=== PATIENT | female | born 1945 | race Caucasian/White ===

== ENCOUNTER → 2024-07-20 | Outpatient (CLI) | payer MEDICARE, SELFPAY ==
[2024-07-20 11:37] LABS: Albumin, Serum 4.2 gm/dL (3.4-4.8); Anion Gap 10 (7-16); BUN/Creatinine Ratio 20 Ratio (12-20); Blood Urea Nitrogen 20 mg/dL (9-23); Calcium 9.6 mg/dL (8.3-10.6); Calcium (Corrected) 9.6 mg/dL (8.5-10.1); Carbon Dioxide 24.5 mMol/L (20.0-31.0); Chloride 107 mMol/L (98-107); Glucose 88 mg/dL (74-106); Osmolality,Calculated 282 (275-295); Phosphorous 3.3 mg/dL (2.4-5.1); Potassium 4.4 mMol/L (3.4-5.1); Sodium 141 mMol/L (136-145); eGFR 58 See Note
== END | disposition home or self-care (01) ==
LOC: COPL 10:26
PROVIDERS: PCP Internal Medicine; Referring Provider Internal Medicine; Visit Provider Internal Medicine
DX: Z00.00 Encounter for general adult medical examination without abnormal findings (principal)
CPT/HCPCS: 36415; 80069

== ENCOUNTER → 2024-08-03 | Outpatient (CLI) | payer MEDICARE, SELFPAY ==
--- NOTE | 2024-08-03 10:30 | XR_ITS ---
Examination: CT abdomen with intravenous contrast CT pelvis with intravenous contrast 2-D coronal reconstructions 2-D sagittal reconstructions Date and time of exam:August 03, 2024 1123 hours INDICATIONS: Right lower abdominal pain left lower abdominal pain beginning 2 months ago. CTDI: vol (mGy) 6.22 DLP: (mGycm) 283 Technique: Multiple axial sections of the abdomen and pelvis have been obtained. 64 slice high-resolution scanner used. 3 mm axial sections have been obtained, post intravenous injection 60 cc Isovue-370 2-D sagittal, coronal reconstructions obtained. Low dose protocols were performed. One or more of the following dose reduction techniques were used; automated exposure control, adjustment of the mA and/or KV according to patient size, use of iterative reconstruction technique. Findings: Minor atelectasis in the right lower lobe Fatty infiltration throughout the liver Gallstones Spleen is not enlarged No pancreatic mass Aorta normal size No renal or ureteral calculi, no hydronephrosis No bowel obstruction Absent appendix Surgical clips right lower abdomen Anteverted uterus with abnormal thickened endometrium 25 mm Urinary bladder intact Prominent osteopenia IMPRESSION: Anteverted uterus with abnormal thickened endometrium, recommend transvaginal transabdominal pelvic sonography follow-up
== END | disposition home or self-care (01) ==
PROVIDERS: PCP Internal Medicine; Referring Provider Internal Medicine; Visit Provider Internal Medicine
DX: N85.4 Malposition of uterus (principal); R93.89 Abnormal findings on diagnostic imaging of other specified body structures
CPT/HCPCS: 74177; A4649; Q9967

== ENCOUNTER → 2024-08-20 | Outpatient (CLI) | payer MEDICARE, SELFPAY ==
--- NOTE | 2024-08-20 13:30 | XR_ITS ---
Examination: Transvaginal ultrasound of the pelvis, complete Technique: Transvaginal sonographic images pelvis performed using burton scale imaging Exam date and time: August 20, 2024 1355 hours INDICATIONS: Thickened endometrial stripe on CT pelvis August 03, 2024, postmenopausal female FINDINGS: Uterus 7.3 x 3.3 x 4.7 cm anteverted Endometrial stripe abnormally thickened 2.4 cm Ovaries obscured by bowel gas IMPRESSION: Abnormal thickened endometrial stripe, differential would include endometrial hyperplasia, malignant neoplasm of the endometrium Recommend MRI pelvis follow-up, pre and postcontrast.
== END | disposition home or self-care (01) ==
LOC: CDIM 12:57
PROVIDERS: PCP Internal Medicine; Referring Provider Internal Medicine; Visit Provider Internal Medicine
DX: R93.89 Abnormal findings on diagnostic imaging of other specified body structures (principal)
CPT/HCPCS: 76830

== ENCOUNTER → 2024-09-07 | Outpatient (CLI) | payer MEDICARE, SELFPAY ==
[2024-09-07 11:54] LABS: Albumin, Serum 4.3 gm/dL (3.4-4.8); Anion Gap 7 (7-16); BUN/Creatinine Ratio 14 Ratio (12-20); Blood Urea Nitrogen 14 mg/dL (9-23); Calcium 9.9 mg/dL (8.3-10.6); Calcium (Corrected) 9.9 mg/dL (8.5-10.1); Chloride 111 mMol/L (98-107); Glucose 91 mg/dL (74-106); Osmolality,Calculated 289 (275-295); Phosphorous 3.9 mg/dL (2.4-5.1); Potassium 4.8 mMol/L (3.4-5.1); Sodium 145 mMol/L (136-145); eGFR 58 See Note
== END | disposition home or self-care (01) ==
LOC: COPL 10:55
PROVIDERS: PCP Internal Medicine; Referring Provider Internal Medicine; Visit Provider Internal Medicine
DX: Z01.812 Encounter for preprocedural laboratory examination (principal)
CPT/HCPCS: 36415; 80069

== ENCOUNTER 2024-09-20 07:51 | Emergency (ER) | payer MEDICARE, SELFPAY ==
[2024-09-20 07:59] VITALS: BP 171/96; PULSE 94; RESP 18; TEMP 36.6; O2SAT 97; BMI 22.0
--- NOTE | 2024-09-20 08:04 | PD.EDRME ---
Rapid Medical Screening Exam [facility] Arrival date/time: 09/20/24 07:51 79-year-old female with no known medical history presents to the emergency room with a chief complaint of vaginal bleeding x 2 days. Patient denies any pelvic pain and states there is significant amount of blood, and blood clots whenever she wipes. I have greeted and performed a focused initial assessment of this patient. A comprehensive ED assessment and evaluation of the patient, analysis of all test results, and completion of the medical decision making process will be conducted by additional ED providers. Chief Complaint: Vaginal Bleeding Vital signs: Vital Signs Temperature 97.8 F 09/20/24 07:59 Pulse Rate 94 09/20/24 07:59 Respiratory Rate 18 09/20/24 07:59 Blood Pressure 171/96 H 09/20/24 07:59 Pulse Oximetry (%) 97 09/20/24 07:59 Oxygen Delivery Method Room Air 09/20/24 07:59 Vital signs reviewed by provider: Yes
--- NOTE | 2024-09-20 08:05 | XR_ITS ---
Examination: Pelvic ultrasound, transabdominal, complete Technique: Transabdominal ultrasound of the pelvis performed using grayscale imaging Date and time of exam: September 22, 2024 0827 hrs. Indications: Vaginal bleeding postmenopausal beginning 5 days ago Findings: Uterus 8.4 x 4.4 x 5.7 cm Abnormally thickened endometrium 14 mm Right ovary 2.2 cm arterial flow Left ovary 2.0 cm arterial flow Impression: Abnormally thickened endometrium in this postmenopausal individual, differential would include endometrial hyperplasia, malignant neoplasm of the endometrium Recommend elective MRI pelvis follow-up pre and postcontrast
[2024-09-20 08:21] LABS: Basophils % (Auto) 0 % (0-2.5); Eosinophils # (Auto) 0.1 Thou/mm3 (0.0-0.5); Eosinophils % (Auto) 1 % (0-10); Hematocrit 40.1 % (36.0-46.0); Hemoglobin 12.9 g/dL (12.0-16.0); Immature Granulocytes % (Auto) 1 % (0-0); Lymphocytes # (Auto) 1.1 Thou/mm3 (1.0-4.8); Lymphocytes % (Auto) 12 % (10-50); Mean Corpuscular HGB Conc 32.2 g/dl (31.0-37.0); Mean Corpuscular Hemoglobin 26.9 pg (25.0-35.0); Mean Corpuscular Volume 84 fL (80-100); Monocytes # (Auto) 0.9 Thou/mm3 (0.0-0.8); Monocytes % (Auto) 10 % (0-12); Neutrophils # (Auto) 6.8 Thou/mm3 (1.8-7.7); Neutrophils % (Auto) 76 % (37-80); Nucleated Red Blood Cell % 0 /100 WBC (0); Platelet Count 325 Thou/mm3 (140-440); RDW Standard Deviation 41.9 fL (36.4-46.3)
[2024-09-20 08:40] LABS: Prothrombin Time 11.1 Seconds (9.0-12.2)
[2024-09-20 08:50] LABS: Alanine Aminotransferase 13 U/L (10-49); Albumin, Serum 4.4 gm/dL (3.4-4.8); Albumin/Globulin Ratio 1.5 (1.2-2.2); Alkaline Phosphatase 64 U/L (46-116); Anion Gap 9 (7-16); Aspartate Amino Transferase 20 U/L (0-34); BUN/Creatinine Ratio 12 Ratio (12-20); Bilirubin,Total 0.4 mg/dL (0.3-1.2); Blood Urea Nitrogen 12 mg/dL (9-23); Calcium 9.4 mg/dL (8.3-10.6); Calcium (Corrected) 9.4 mg/dL (8.5-10.1); Carbon Dioxide 27.4 mMol/L (20.0-31.0); Chloride 105 mMol/L (98-107); Estimated Creatinine Clearance 38.4 mL/min (>60); Globulin 2.9 gm/dL (2.3-3.5); Glucose 96 mg/dL (74-106); Osmolality,Calculated 280 (275-295); Potassium 3.6 mMol/L (3.4-5.1); Sodium 141 mMol/L (136-145); Total Protein 7.3 gm/dL (5.7-8.2); eGFR 58 See Note
[2024-09-20 09:23] LABS: Collection Type, Urine Clean Catch
[2024-09-20 09:36] LABS: Bilirubin,Urine Negative (Negative); Blood,Urine 2+ (Negative); Clarity,Urine Clear (Clear/Hazy); Color,Urine Colorless (Lt Yel-Yel); Culture Indicated,Urine Not Indicated; Glucose, Urine Negative (Negative); Ketones,Urine Negative (Negative); Leukocyte Esterase,Urine Negative (Negative); Nitrite,Urine Negative (Negative); PH,Urine 6.5 (5.0-7.0); Protein,Urine Negative (Neg - Trace); RBC,Urine < 1 /hpf (0-3); Specific Gravity,Urine 1.004 (1.001-1.035); Squamous Epithelial Cell,Urine < 1 /hpf (0-5); Urobilinogen,Urine Negative mg/dL (0.0-1.0); WBC,Urine 1 /hpf (0-5)
[2024-09-20 09:39] VITALS: BP 168/84; PULSE 80; RESP 17; TEMP 36.8; O2SAT 100
--- NOTE | 2024-09-20 09:58 | PD.EDVAGBL ---
ED OB Contraction Preg RMI/HPI General Chief complaint: Vaginal Bleeding Stated complaint: BLEEDING FROM MY VAGINIA X SATURDAY Arrival date/time: 09/20/24 07:51 RME / HPI RME / HPI Narrative: 09/20/24 07:51 79-year-old female with no known medical history presents to the emergency room with a chief complaint of vaginal bleeding x 2 days. Patient denies any pelvic pain and states there is significant amount of blood, and blood clots whenever she wipes. I have greeted and performed a focused initial assessment of this patient. A comprehensive ED assessment and evaluation of the patient, analysis of all test results, and completion of the medical decision making process will be conducted by additional ED providers. DR. RIDER MAIN ED EVALUATION: 79 year old female with past medical history significant for GERD presents to the Emergency Department accompanied by her son with complaint of vaginal bleeding since Saturday evening, 6 days ago. Symptoms are moderate, patient reports some clots and maybe 1 cup of blood total. She states she had similar symptoms 5 years ago, saw Dr. Nguyễn. She states that she had CT and US for abdominal pain; she has an MRI scheduled and no official diagnosis yet. Patient also reports that she was recently sick with flu symptoms about 2 weeks ago but doing better and finished her Zpak yesterday. Otherwise reports normal gait. No dysuria, no shortness of breath, no significant weight loss/ gain, or other symptoms at this time. PCP: Dr. 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: Delma Related Data Home Medications ?Medication ?Instructions ?Recorded ?Confirmed zolpidem 10 mg tablet 10 mg PO HS 05/20/18 01/05/21 loratadine 10 mg tablet (Claritin) 10 mg PO QDAY PRN Allergy Symptoms 01/05/21 01/05/21 Allergies Allergy/AdvReac Type Severity Reaction Status Date / Time levofloxacin Allergy Intermediate TENODN PAIN Verified 09/20/24 07:52 Penicillins Allergy Intermediate Hives Verified 09/20/24 07:52 prednisone Allergy Intermediate Chest Pain Verified 09/20/24 07:52 Review of Systems Review of Systems Systems Reviewed: All systems reviewed, normal except as documented Narrative Review of Systems: GEN: No fever, no chills, no weight loss EYES: No discharge, no visual changes, no pain HEENT: No ear pain, no congestion, no sore throat PULM: No shortness of breath, no cough, no congestion CV: No chest pain, no dyspnea on exertion, no palpitations GI: No nausea, no vomiting, no diarrhea, no pain, no constipation : No frequency, no urgency and no dysuria + vaginal bleeding (see HPI) MUSC/SKEL: No joint pain, no back pain SKIN: No rash PSYCH: No hallucinations, no depression HEME/LYMPH: No easy bleeding or bruising tendencies NEURO: No weakness, no headache Past Medical History Past Medical History GASTROINTESTINAL: Positive Gastrointestinal Disorders and Gastroesophageal Reflux Disease MUSCULOSKELETAL: Positive Musculoskeletal Disorders and Degenerative Joint Disease (Rt Knee) ENT: Positive Cataracts (BILATERAL EYES) Family History FAMILY HISTORY: Positive Family Cardiac Disorders (HTN-brother) and Family Cancer (grandparent) Social History SMOKING STATUS: Never smoker SUBSTANCE USE: does not use ALCOHOL: Never ED Exam Narrative Physical exam: Physical Exam:? General:?? ? The vital signs were reviewed. ? ? The patient is non-toxic, in no apparent distress and appears healthy with a patent airway, no respiratory distress and has no apparent circulatory problems. Head & Scalp:?? ? Normocephalic, atraumatic. Face:?? ? Appears normal and is without lesions, deformity. Ears:??? Left external pinna appears normal. ? ? Right external pinna appears normal. Eyes:?? ? The sclera is anicteric.? No obvious photophobia. ? ? The Left and Right Orbit/Lid/Conjunctiva appears normal without swelling, discoloration or injection. Nose: ? ? The nose is without deformity, discharge or tenderness; Throat: ? ? Appears normal.? The mucous membranes are pink and moist without exudates, redness or mass seen.? The tongue appears normal. Neck: The neck is supple and no apparent mass or adenopathy. Chest: The chest wall is normal in size and symmetry and has no chest wall tenderness or crepitus. ? ? The patient displays normal ventilator effort without retractions, accessory muscle use and has adequate air movement bilaterally with no wheezes and no rales. ? Cardiovascular: Regular rate and rhythm; No murmurs, rubs, or gallops; Gastrointestinal: The abdomen appears normal.? No obvious hernias or mass. The abdomen is soft and benign, non-distended, with no pain, no guarding and no rebound tenderness.? Bowel sounds are present and normal sounding.? No CVA tenderness. Genitourinary: Back/Spine: Extremities/Musculoskeletal/lymphatic:? ? ? The bilateral upper and lower extremities are warm. There is no evidence of arterial? insufficiency. There is no evidence of venous insufficiency/edema. The patient spontaneously moves bilateral upper and lower extremities with no pain and no limitation of movement.? There is no apparent, injury or trauma. Skin:? The skin is warm, dry and intact.? No rashes. No petechia. No purpura. No abnormal bruising.? The color is appropriate with no cyanosis. Mental status/Psychiatric: Mental status is appropriate for age. The patient has no apparent delusions, visual hallucinations, no apparent audible hallucinations. The patient has no apparent suicidal thoughts/ideation and no apparent homicidal thoughts/ideation. Neurological:? The patient is awake, alert, interactive, cordial, cooperative and is oriented to name and situation. The patient follows commands and answers historical question with no impairment.?? There is no visual disturbance apparent.? The pupils are equal and reactive bilaterally with normal eye movements and no diplopia The bilateral upper and lower extremities have normal strength, normal range of motion and normal functioning. The gait, station and balance appears? to be baseline with no acute change Course Quality Measures none Orders Category Date Time Status US pelvic complete Stat Exams 09/20/24 08:05 Completed CBC Stat Lab 09/20/24 08:15 Completed CMP [Comprehensive Metabolic Panel] Stat Lab 09/20/24 08:15 Completed PT [Prothrombin Time with INR] Stat Lab 09/20/24 08:15 Completed PTT [Partial Thromboplastin Time] Stat Lab 09/20/24 08:15 Completed Type and Screen Stat Lab 09/20/24 08:15 Results UA, C/S IF [Urinalysis, C/S if Indicated] Stat Lab 09/20/24 08:42 Completed Vital Signs Vital signs: Vital Signs Temperature 97.8 F 09/20/24 07:59 Pulse Rate 94 09/20/24 07:59 Respiratory Rate 18 09/20/24 07:59 Blood Pressure 171/96 H 09/20/24 07:59 Pulse Oximetry (%) 97 09/20/24 07:59 Oxygen Delivery Method Room Air 09/20/24 07:59 Vaginal Bleeding MDM Narrative MDM Narrative: I, Capri Castro, am scribing for and in the presence of Dr. Rider. Patient is a 71-year-old who started having vaginal bleeding approximately 4 days ago and yesterday states she soaked 4 pads. So far this morning there is been 1 pad. She is ambulatory not dizzy having no acute complaints. Laboratory studies are within normal limits and the initial hemoglobin is 12.9. Review of previous CAT scan that was done August 03 of this year reveals an abnormal thickened endometrium she also had a follow-up pelvic ultrasound which revealed the same abnormal thickened endometrial stripe today's ultrasound reveals the same thing. Presuming she has some hyperplasia and/or neoplastic activity going on that will need further evaluation and a biopsy. Patient has seen Dr Nguyễn her youth court judge and he was called and answered the phone and discussed the case and he wants to see the patient tomorrow and ask her to call at 8:00 in the morning to get an appointment. She knows to return or call him if she is having worse bleeding. She was comfortable with the plan she is ambulatory she was advised not to do any activities that might put her at jeopardy like working on the roof and/or ladders. CBC is within normal limits. PT/INR within normal limits. CHEM panel with normal electrolytes normal renal function. Transaminases are within normal limits. Urinalysis was negative. Imaging studies were discussed above. Patient data External records reviewed:: [facility] previous records (Reviewed Opthalmology note by Dr. Lane, dated 08/07/18.) Clinical information provided by:: patient and family (son) Social determinants that could affect healthcare access:: none Patient has the following chronic illnesses:: GERD How is presenting disease/condition affected by chronic disease/condition?: uneffected by Evaluation data The following diagnostics were reviewed and interpreted by me:: lab results and radiology exam(s) Lab and/or radiology exams considered but not ordered:: none Interpretation Summary: Procedure(s): US pelvic complete Accession Number(s): [id number] cc: Rojas Jamil MD; Segun Green; Kodak Heck MD~ Examination: Pelvic ultrasound, transabdominal, complete Technique: Transabdominal ultrasound of the pelvis performed using grayscale imaging Date and time of exam: September 22, 2024 0827 hrs. Indications: Vaginal bleeding postmenopausal beginning 5 days ago Findings: Uterus 8.4 x 4.4 x 5.7 cm Abnormally thickened endometrium 14 mm Right ovary 2.2 cm arterial flow Left ovary 2.0 cm arterial flow Impression: Abnormally thickened endometrium in this postmenopausal individual, differential would include endometrial hyperplasia, malignant neoplasm of the endometrium Recommend elective MRI pelvis follow-up pre and postcontrast Dictated By: Kodak Heck MD Medications / Prescriptions Medications or Prescriptions considered but not ordered:: none Medication administrations:: see above if any Consultations Consultation(s) initiated? (list below): Yes Consultation #1 (Physician, Specialty, Details): Discussed test HPI, PMHx, lab, radiology results and/or management with Dr. Nguyễn. He would like the patient to call tomorrow at 8 AM to follow as an outpatient. Time: 10:17 Diagnosis Vaginal Bleeding Differential Diagnosis: dysfunctional uterine bleeding, vaginal bleeding and other (cancer, endometrium thickening) Most likely diagnosis given after review of the tests above:: see below Admission Indicated Admission indicated?: not indicated Admission Request Was there a request for admission?: No Disposition Plan Disposition Plan: Discharge Discharge Attestation Discharge Attestation: The patient and all family members were given an opportunity to ask questions and understood the discharge instructions. Discharge instructions specifically effects, indications for sooner follow up or return to the emergency department, and the expected course of current diagnosis. Patient condition: Stable Discharge Plan Plan Patient Disposition: HOME (Self Care) Prescriptions/Referrals Prescriptions/Med Rec: No Action loratadine [Claritin] 10 mg Tablet 10 mg PO QDAY PRN (Reason: Allergy Symptoms) zolpidem 10 mg Tablet 10 mg PO HS Referrals: Rojas Jamil MD [Primary Care Provider] - In 1 week Problem List Clinical Impression: Vaginal bleeding, Thickened endometrium Patient/Caregiver Discharge Instructions Additional Instructions: Called Dr Nguyễn's office at 8:00 tomorrow morning at [phone] to get an appointment tomorrow so we can reevaluate your vaginal bleeding and the thickening of your endometrium. Take the imaging studies reports with you. If you are having worse bleeding getting weak or dizzy please return for reevaluation or recontact Dr Nguyễn as we discussed. Print Language: Nicaraguan Stand Alone Forms: Madiha Award Info., Patient Portal Info Letter
[2024-09-20 10:32] VITALS: BP 124/84; PULSE 72; RESP 15; TEMP 36.8; O2SAT 99
== END 2024-09-20 10:34 | disposition home or self-care (01) ==
PROVIDERS: Nurse Practitioner Family; Emergency Provider Emergency Medicine; PCP Internal Medicine
DX: R93.89 Abnormal findings on diagnostic imaging of other specified body structures (principal)
CPT/HCPCS: 36415; 76856; 80053; 81001; 85025; 85610; 85730; 86850; 86900; 86901; 99284

== ENCOUNTER 2024-12-08 05:35 | Day surgery (SDC) | payer MEDICARE, SELFPAY ==
--- NOTE | 2024-12-04 07:03 | ESHP_ITS ---
RE: DELANO WISE : 1945 DATE OF ADMISSION: 12/07/2024 HISTORY OF PRESENT ILLNESS: This is a 79-year-old with postmenopausal bleeding and endometrial thickening with endometrial polyp who presents for removal and endometrial biopsy. ALLERGIES: PENICILLIN. MEDICATIONS: None. PAST MEDICAL HISTORY: Gastroesophageal reflux disease, hypertension. PAST SURGICAL HISTORY: Appendectomy and colonoscopy. SOCIAL HISTORY: She denies any alcohol, drug use, or smoking. FAMILY HISTORY: Brother has hypertension and maternal grandfather, stroke. REVIEW OF SYSTEMS: She denies any chest pain, palpitations, cough, fever, shortness of breath, or lower extremity pain. PHYSICAL EXAMINATION: VITAL SIGNS: Blood pressure is 138/84, heart rate 88, respirations 18, temperature 98.6, weight 126 pounds. HEENT: Oropharynx and sclerae are clear. LUNGS: Clear to auscultation bilaterally. HEART: Regular rate and rhythm. ABDOMEN: Nontender. No scars noted. EXTREMITIES: Nontender. SKIN: No gross rashes or lesions. NEUROLOGIC: No focal deficit. ASSESSMENT: Postmenopausal bleeding, endometrial thickening, endometrial polyp. PLAN: Hysteroscopy, MyoSure removal of endometrial polyp, fractional dilatation and curettage. Informed consent was obtained. The patient was made aware of the risks, complications, alternatives, and benefits of the proposed procedure and she agrees. She is aware of the risk of injury to bowel, bladder, adjacent organs, pulmonary embolism, deep vein thrombosis, pelvic infection, reoperation to repair injury to internal organs, anesthesia complications, the possibility that a laparotomy needs to be performed to repair organs or control bleeding, the possibility the procedure is not able to be completed due to severe adhesions or technical difficulties. DT: 04:35:48 TT: 07:02:00 Ref: [id number] - TID: [id number] MARIVEL
--- NOTE | 2024-12-07 06:45 | EKG_ITS ---
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
[2024-12-07 07:44] VITALS: BMI 23.1
[2024-12-07 08:52] LABS: Basophils # (Auto) 0.1 Thou/mm3 (0.0-0.2); Basophils % (Auto) 1 % (0-2.5); Eosinophils # (Auto) 0.1 Thou/mm3 (0.0-0.5); Eosinophils % (Auto) 2 % (0-10); Hematocrit 39.2 % (36.0-46.0); Hemoglobin 13.2 g/dL (12.0-16.0); Immature Granulocytes % (Auto) 0 % (0-0); Immature Granulocytes Auto 0.02 Thou/mm3 (0.00-0.00); Lymphocytes # (Auto) 1.4 Thou/mm3 (1.0-4.8); Lymphocytes % (Auto) 22 % (10-50); Mean Corpuscular HGB Conc 33.7 g/dl (31.0-37.0); Mean Corpuscular Hemoglobin 27.1 pg (25.0-35.0); Mean Corpuscular Volume 81 fL (80-100); Monocytes # (Auto) 0.6 Thou/mm3 (0.0-0.8); Monocytes % (Auto) 10 % (0-12); Neutrophils # (Auto) 4.2 Thou/mm3 (1.8-7.7); Neutrophils % (Auto) 65 % (37-80); Nucleated Red Blood Cell % 0 /100 WBC (0); Platelet Count 264 Thou/mm3 (140-440); RDW Standard Deviation 41.4 fL (36.4-46.3); Red Blood Count 4.87 Miln/mm3 (4.00-5.20); White Blood Count 6.5 Thou/mm3 (3.6-11.0)
[2024-12-07 08:58] LABS: Partial Thromboplastin Time 28.3 Seconds (22.0-36.0); Prothrombin Time 10.9 Seconds (9.0-12.2)
[2024-12-07 09:12] LABS: Alanine Aminotransferase 13 U/L (10-49); Albumin, Serum 4.4 gm/dL (3.4-4.8); Albumin/Globulin Ratio 1.5 (1.2-2.2); Alkaline Phosphatase 72 U/L (46-116); Anion Gap 10 (7-16); Aspartate Amino Transferase 23 U/L (0-34); BUN/Creatinine Ratio 16 Ratio (12-20); Beta HCG,Quantitative 5 mIU/mL (<5.0); Bilirubin,Total 0.5 mg/dL (0.3-1.2); Blood Urea Nitrogen 18 mg/dL (9-23); Calcium 9.6 mg/dL (8.3-10.6); Calcium (Corrected) 9.6 mg/dL (8.5-10.1); Carbon Dioxide 27.5 mMol/L (20.0-31.0); Chloride 105 mMol/L (98-107); Creatinine (Component) 1.1 mg/dL (0.6-1.3); Estimated Creatinine Clearance 33.3 mL/min (>60); Glucose 94 mg/dL (74-106); Osmolality,Calculated 285 (275-295); Potassium 4.2 mMol/L (3.4-5.1); Sodium 142 mMol/L (136-145); Total Protein 7.4 gm/dL (5.7-8.2); eGFR 51 See Note
[2024-12-08] VITALS (7 sets, daily range): BP systolic 145–169; BP diastolic 78–95; PULSE 75–97; RESP 12–18; TEMP 36.2–36.3; O2SAT 97–99; BMI 22.8
--- NOTE | 2024-12-08 08:13 | PD.GYNPROC ---
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 Procedure Date of procedure: 12/08/24 Procedure Performed: Hysteroscopy, MyoSure removal of endometrial polyps and fractional dilatation and curettage Pre-Op diagnosis: Postmenopausal bleeding Endometrial thickening Endometrial polyps Post-Op diagnosis: Postmenopausal bleeding Endometrial thickening Endometrial polyps Anesthesia type: General Procedure description: After proper informed consent was obtained and the patient made aware of the risk complications alternatives and benefits of the proposed procedure she was taken to the operating room where she underwent induction of general anesthesia. She is placed in the dorsolithotomy position and prepped and draped in usual sterile fashion. A timeout was performed. A bivalve speculum was placed in the vagina the anterior lip of the cervix was grasped with a tenaculum and using the 3 mm Omni hysteroscope the endocervix and uterine cavity was visualized. Using the dilators the cervix was dilated to accommodate the 5.5 mm Omni hysteroscope with. The Omni hysteroscope was then utilized to visualize the endocervix and uterine cavity and multiple polyps were noted. There were 3 polyps seen in the uterine cavity 1 in the 12 o'clock position another in the 5 o'clock position and another at the 8 o'clock position. These polyps were roughly about the same size approximately 5 x 5 mm each. In the MyoSure reach device was then inserted through the working channel of the Omni hysteroscope and the polyps were removed without difficulty and specimen sent to pathology. The endocervix was curetted with a Kevorkian curette and specimen sent to pathology the uterine cavity was curetted with the 5 mm curette and specimen sent to pathology. Specimen: other (1. Endometrial polyps 2. Endocervical Curettings. 3. Endometrial Curettings. ) Findings: Grossly normal-appearing cervix. Stenotic cervical canal. No endocervical polyps or lesions. Endometrial polyps in the uterine cavity as described above. Complications: none Surgical staff Operation Date: 12/08/24 07:30 Case Staff FIELD RESEARCH ASSOCIATE: Foreign [place] Diagnosis Discharge Diagnosis (1) Endometrial polyp: Status: Acute (2) Postmenopausal bleeding: Status: Acute Problem List Completed Was Problem List Reviewed/Reconciled?: Yes
--- NOTE | 2024-12-08 08:14 | SUR.PHASEI ---
0814: Pt. wakes to name then drifts back to sleep, vitals stable, breathing unlabored, peripad in place with scant amount of blood, report received from Srini FUENTES and Mateusz ROBERT.
--- NOTE | 2024-12-08 08:59 | SUR.PHASEII ---
0859: Pt. AAOx4, vitals stable, breathing unlabored, no complaint of pain or nausea, peripad in place with scant amount of blood, pt. tolerated bites of ice well, pt. ambulated to wheelchair with steady gait and no assist, no complications. Gave discharge instructions to the pt. and her ride, both verbalized understanding and had no further questions. Pt. left with all personal belongings.
== END 2024-12-08 08:59 | disposition home or self-care (01) ==
PROVIDERS: PCP Internal Medicine; Referring Provider Specialist; Visit Provider Specialist
PROC: 0U5B8ZZ Destruction of Endometrium, Via Natural or Artificial Opening Endoscopic (ICD-10-PCS; CPT 58563; principal; 2024-12-08 07:30)
DX: N85.02 Endometrial intraepithelial neoplasia [EIN] (principal); N95.0 Postmenopausal bleeding; I10 Essential (primary) hypertension; K21.9 Gastro-esophageal reflux disease without esophagitis; Z90.49 Acquired absence of other specified parts of digestive tract; Z88.0 Allergy status to penicillin
CPT/HCPCS: 58558; 36415; 80053; 84702; 85025; 85610; 85730; 86850; 86900; 86901; 93005; A4217; A4649; J1100; J2405; J2704; J3010; J3490